=== PATIENT | male | born 1990 | race Caucasian/White ===

== ENCOUNTER → 2020-11-23 | Outpatient (REF) ==
--- NOTE | 2020-11-23 09:49 | REP ---
INDICATION: PAST KNEE SURGERY COMPARISON: None TECHNIQUE: Three views FINDINGS: There is no evidence of an acute fracture or destructive osseous lesion. 1 cancellous and 1 cortical screw are seen in the proximal tibia and likely secondary to previous Freeman Partida fixation screws. The compartments are symmetric and well maintained. IMPRESSION: Chronic changes as described above. <Electronically signed by Selvin Pruitt > 11/23/20 [id number]
== END ==
LOC: M PLAIMG 08:33
PROVIDERS: ATTEND Internal Medicine
DX: Z87.828 Personal history of other (healed) physical injury and trauma (principal)